=== PATIENT | male | born 1965 | race Caucasian/White ===

== ENCOUNTER 2018-04-06 09:20 | Emergency (ER) | payer BC, OTHER ==
[2018-04-06] MEDS ORDERED: HYDROCODONE/APAP 5/325 MG TAB ONE (10:13)
[2018-04-06] MEDS ORDERED: KETOROLAC 30 MG/ML INJ ONE (10:14)
--- NOTE | 2018-04-06 10:24 | EDPHYS ---
Physician Documentation [facility] Name: Tyler Cordero Age: 52 yrs Sex: Male : 1965 Arrival Date: 04/06/2018 Time: 09:23 Bed 14 Private MD: Escobar Mitchell T ED Physician Shlomo Reid HPI: 04/06 10:18 This 52 yrs old Male presents to ER via Ambulatory with complaints of Ankle snw Injury. 10:18 The patient presents with decreased range of motion, pain, swelling. The complaints snw affect the right ankle. Onset: The symptoms/episode began/occurred suddenly, today. Context: The problem was sustained at home, resulted from an unknown cause, The mechanism of injury is unknown. The patient can partially bear weight on the affected extremity. must have assistance. Associated signs and symptoms: Pertinent positives: swelling, warmth, of the right ankle. Severity of symptoms: At their worst the symptoms were moderate, severe. The patient has not experienced similar symptoms in the past. The patient has been recently seen by a physician: pt was seen for check up and started on gout medication because his uric acid level was high. smoker. Historical: - Allergies: 09:25 No Known Allergies; rb1 - Home Meds: 09:25 losartan oral oral [Active]; rb1 - PMHx: 09:25 Hypertension; rb1 - PSHx: 09:25 Hernia repair; ACL Right Leg; rb1 - Immunization history:: Adult Immunizations up to date. - Social history:: Smoking status: Patient uses tobacco products, smokes one pack cigarettes per day. - Ebola Screening: : Patient negative for fever greater than or equal to 101.5 degrees Fahrenheit, and additional compatible Ebola Virus Disease symptoms. ROS: 10:16 Constitutional: Negative for fever, chills, and weight loss, Eyes: Negative for injury, snw pain, redness, and discharge, ENT: Negative for injury, pain, and discharge, Neck: Negative for injury, pain, and swelling, Cardiovascular: Negative for chest pain, palpitations, and edema, Respiratory: Negative for shortness of breath, cough, wheezing, and pleuritic chest pain, Abdomen/GI: Negative for abdominal pain, nausea, vomiting, diarrhea, and constipation, Back: Negative for injury and pain, : Negative for injury, bleeding, discharge, and swelling, Skin: Negative for injury, rash, and discoloration, Neuro: Negative for headache, weakness, numbness, tingling, and seizure. 10:16 MS/extremity: Positive for decreased range of motion, erythema, pain, swelling, of the right lateral ankle. Exam: 10:16 Constitutional: This is a well developed, well nourished patient who is awake, alert, snw and in no acute distress. Head/Face: Normocephalic, atraumatic. Eyes: Pupils equal round and reactive to light, extra-ocular motions intact. Lids and lashes normal. Conjunctiva and sclera are non-icteric and not injected. Cornea within normal limits. Periorbital areas with no swelling, redness, or edema. ENT: Nares patent. No nasal discharge, no septal abnormalities noted. Tympanic membranes are normal and external auditory canals are clear. Oropharynx with no redness, swelling, or masses, exudates, or evidence of obstruction, uvula midline. Mucous membranes moist. Neck: Trachea midline, no thyromegaly or masses palpated, and no cervical lymphadenopathy. Supple, full range of motion without nuchal rigidity, or vertebral point tenderness. No Meningismus. Chest/axilla: Normal chest wall appearance and motion. Nontender with no deformity. No lesions are appreciated. Cardiovascular: Regular rate and rhythm with a normal S1 and S2. No gallops, murmurs, or rubs. Normal PMI, no JVD. No pulse deficits. Respiratory: Lungs have equal breath sounds bilaterally, clear to auscultation and percussion. No rales, rhonchi or wheezes noted. No increased work of breathing, no retractions or nasal flaring. Abdomen/GI: Soft, non-tender, with normal bowel sounds. No distension or tympany. No guarding or rebound. No evidence of tenderness throughout. Back: No spinal tenderness. No costovertebral tenderness. Full range of motion. Skin: Warm, dry with normal turgor. Normal color with no rashes, no lesions, and no evidence of cellulitis. Neuro: Awake and alert, GCS 15, oriented to person, place, time, and situation. Cranial nerves II-XII grossly intact. Motor strength 5/5 in all extremities. Sensory grossly intact. Cerebellar exam normal. Normal gait. Psych: Awake, alert, with orientation to person, place and time. Behavior, mood, and affect are within normal limits. 10:16 Musculoskeletal/extremity: Extremities: grossly normal except: decreased ROM, erythema, pain, swelling, tenderness, ROM: limited passive range of motion due to pain, in the right ankle, Circulation is intact in all extremities. Sensation intact. Vital Signs: 09:25 BP 146 / 93; Pulse 86; Resp 20; Temp 97.9(O); Pulse Ox 96% on R/A; Weight 99.79 kg (R); rb1 Height 6 ft. 0 in. (182.88 cm) (R); Pain 9/10; 10:21 BP 130 / 85; Pulse 72; Resp 18; Pulse Ox 97% on R/A; rb1 10:50 BP 136 / 89; Pulse 76; Resp 17; Pulse Ox 98% on R/A; Pain 7/10; rb1 09:25 Body Mass Index 29.84 (99.79 kg, 182.88 cm) rb1 MDM: 09:34 Patient medically screened. snw 10:26 Data reviewed: vital signs, nurses notes. Data interpreted: Pulse oximetry: on room air snw is 97 %. Interpretation: normal. Counseling: I had a detailed discussion with the patient and/or guardian regarding: the historical points, exam findings, and any diagnostic results supporting the discharge/admit diagnosis, radiology results, the need for outpatient follow up, to return to the emergency department if symptoms worsen or persist or if there are any questions or concerns that arise at home. Special discussion: I have referred the patient to see his PCP for further evaluation of high blood pressure. Based on the history and exam findings, there is no indication for further emergent testing or inpatient evaluation. I discussed with the patient/guardian the need to see the primary care provider for further evaluation of the symptoms. 04/06 09:35 Order name: Ankle Right 3 View XRAY snw 04/06 10:26 Order name: Walking boot; Complete Time: 10:56 snw Administered Medications: 10:20 Drug: TORadol 60 mg Route: IM; Site: right gluteus; rb1 10:40 Follow up: Response: No adverse reaction; Pain is decreased rb1 10:20 Drug: [place] 5 mg-325 mg 1 tabs Route: PO; rb1 10:50 Follow up: Response: No adverse reaction; Pain is decreased rb1 Disposition: 14:33 Co-signature as Attending Physician, Shlomo Reid MD. rn Disposition: 04/06/18 10:23 Discharged to Home. Impression: Gout. - Condition is Stable. - Discharge Instructions: Elastic Bandage and RICE, Cast or Splint Care, Gout, Smoking Cessation, Smoking Hazards, Low-Purine Diet. - Prescriptions for Tylenol- Codeine #3 300-30 mg Oral Tablet - take 2 tablets by ORAL route every 6 hours As needed; 16 tablet. Diclofenac Sodium 75 mg Oral Tablet Sustained Release - take 1 tablet by ORAL route 2 times per day; 30 tablet. - Work release form, Medication Reconciliation Form, Thank You Letter, Antibiotic Education, Prescription Opioid Use form. - Follow up: Escobar Mitchell MD; When: 2 - 3 days; Reason: Recheck today's complaints, Continuance of care, Re-evaluation by your physician. Follow up: Emergency Department; When: As needed; Reason: Worsening of condition. Signatures: Dispatcher [employer] EDPA Marianela Reilly, [employer] [employer] Shlomo Reid MD MD rn Barber, Rebecca, RN RN rb1 Corrections: (The following items were deleted from the chart) 10:25 10:10 Splint - Ankle: Orthoglass: Posterior ordered. snw snw 10:59 10:23 04/06/2018 10:23 Discharged to Home. Impression: Gout. Condition is Stable. Forms rb1 are Medication Reconciliation Form, Thank You Letter, Antibiotic Education, Prescription Opioid Use. Follow up: Escobar Mitchell; When: 2 - 3 days; Reason: Recheck today's complaints, Continuance of care, Re-evaluation by your physician. Follow up: Emergency Department; When: As needed; Reason: Worsening of condition. snw
--- NOTE | 2018-04-06 10:24 | ER ---
Nurse's Notes [facility] Name: Tyler Cordero Age: 52 yrs Sex: Male : 1965 Arrival Date: 04/06/2018 Time: 09:23 Bed 14 Private MD: Escobar Mitchell T Diagnosis: Gout Presentation: 04/06 09:25 Presenting complaint: Patient states: "I woke up 2 days ago and my ankle was stiff but rb1 it has gotten worse and hurts to walk on it.". Transition of care: patient was not received from another setting of care. Onset of symptoms was April 04, 2018. Risk Assessment: Do you want to hurt yourself or someone else? Patient reports no desire to harm self or others. Initial Sepsis Screen: Does the patient meet any 2 criteria? No. Patient's initial sepsis screen is negative. Does the patient have a suspected source of infection? No. Patient's initial sepsis screen is negative. Care prior to arrival: None. 09:25 Method Of Arrival: Ambulatory [facility] 09:25 Acuity: SOFIA 3 rb1 Triage Assessment: :25 General: See Nurse's Notes. rb1 Historical: - Allergies: 09: No Known Allergies; rb1 - Home Meds: : losartan oral oral [Active]; rb1 - PMHx: :25 Hypertension; rb1 - PSHx: 09:25 Hernia repair; ACL Right Leg; rb1 - Immunization history:: Adult Immunizations up to date. - Social history:: Smoking status: Patient uses tobacco products, smokes one pack cigarettes per day. - Ebola Screening: : Patient negative for fever greater than or equal to 101.5 degrees Fahrenheit, and additional compatible Ebola Virus Disease symptoms. Screenin:25 Abuse screen: Denies threats or abuse. Nutritional screening: No deficits noted. rb1 Tuberculosis screening: No symptoms or risk factors identified. Fall Risk None identified. Assessment: 09:25 General: Appears uncomfortable, Behavior is calm, cooperative, Denies fever. Pain: rb1 Complains of pain in right ankle Pain at worst was 9 out of 10 on a pain scale. Pain began 2-3 days ago. Aggravated by weight bearing. Neuro: Level of Consciousness is awake, alert, obeys commands, Oriented to person, place, time, situation, Appropriate for age. Cardiovascular: Capillary refill < 3 seconds is brisk in bilateral toes. Respiratory: Airway is patent Respiratory effort is even, unlabored, Respiratory pattern is regular, symmetrical. GI: No signs and/or symptoms were reported involving the gastrointestinal system. : No signs and/or symptoms were reported regarding the genitourinary system. Derm: Skin is pink, warm \\T\\ dry. Musculoskeletal: Range of motion: limited in right ankle Swelling present in right ankle. 10:20 Reassessment: Patient appears in no apparent distress at this time. No changes from rb1 previously documented assessment. at bedside. Vital Signs: 09:25 BP 146 / 93; Pulse 86; Resp 20; Temp 97.9(O); Pulse Ox 96% on R/A; Weight 99.79 kg (R); rb1 Height 6 ft. 0 in. (182.88 cm) (R); Pain 9/10; 10:21 BP 130 / 85; Pulse 72; Resp 18; Pulse Ox 97% on R/A; rb1 10:50 BP 136 / 89; Pulse 76; Resp 17; Pulse Ox 98% on R/A; Pain 7/10; rb1 09:25 Body Mass Index 29.84 (99.79 kg, 182.88 cm) rb1 ED Course: 09:23 Patient arrived in ED. sb2 09:23 Escobra Mitchell MD is Private Physician. sb2 09:25 Patient has correct armband on for positive identification. Bed in low position. Call rb1 light in reach. Side rails up X 1. Pulse ox on. NIBP on. 09:25 Arm band placed on right wrist. rb1 09:31 Juany Flores, RN is Primary Nurse. rb1 09:34 Marianela Reilly FNP-C is PHCP. snw 09:34 Shlomo Reid MD is Attending Physician. snw 09:38 Triage completed. rb1 10:02 Ankle Right 3 View XRAY In Process Unspecified. EDMS 10:21 Escobar Mitchell MD is Referral Physician. snw 10:55 No provider procedures requiring assistance completed. Patient did not have IV access rb1 during this emergency room visit. Administered Medications: 10:20 Drug: TORadol 60 mg Route: IM; Site: right gluteus; rb1 10:40 Follow up: Response: No adverse reaction; Pain is decreased rb1 10:20 Drug: [place] 5 mg-325 mg 1 tabs Route: PO; rb1 10:50 Follow up: Response: No adverse reaction; Pain is decreased rb1 Outcome: 10:23 Discharge ordered by . marley 10:55 Patient left the ED. rb1 10: Discharged to home via wheelchair, with family. rb1 10:55 Condition: stable 10:55 Discharge instructions given to patient, Instructed on discharge instructions, follow up and referral plans. medication usage, Walking boot care. Demonstrated understanding of instructions, follow-up care, medications, walking boot care Prescriptions given X 2. Signatures: Dispatcher [employer] EDMS Marianela Reilly, [facility] Juany Flores, RN RN rb1 Katty Phipps sb2 Corrections: (The following items were deleted from the chart) 11:21 10:59 Patient left the ED. rb1 rb1
[2018-04-06 11:03] VITALS: TEMP 97.9
[2018-04-06 11:04] VITALS: BP 130/85; O2SAT 97
--- NOTE | 2018-04-06 11:17 | RAD REPORT ---
EXAM DESCRIPTION: RAD - Ankle Right 3 View - 04/06/2018 10:01 am CLINICAL HISTORY: Ankle pain and stiffness, pain with ambulation, no known precipitating injury COMPARISON: None. FINDINGS: No fracture, dislocation or periosteal reaction. No joint effusion seen. No joint space na rrowing. Very minimal plantar spur is present. Soft tissues are mildly prominent with baseline unknow n. IMPRESSION: Mild prominence of the soft tissues. No acute bone or joint finding. Very minimal plantar spur.
== END 2018-04-06 10:59 | disposition home or self-care (01) ==
LOC: ER 09:20
DX: M10.9 Gout, unspecified (principal); I10 Essential (primary) hypertension; F17.210 Nicotine dependence, cigarettes, uncomplicated
CPT/HCPCS: 96372; 99284